=== PATIENT | male | born 2000 | race Caucasian/White ===

== ENCOUNTER 2020-12-01 10:57 | Emergency (ER) | payer MEDICAID ==
[~2020-12-01] VITALS: Ht 165.1 cm; Wt 52.3 kg
[2020-12-01 11:24] VITALS: BP 122/72
[2020-12-01] MEDS ORDERED: AMOX500C2 PO (11:36)
[2020-12-01] MEDS ORDERED: HYDR-3965 PO (11:36)
--- NOTE | 2020-12-01 11:53 | NUR ---
Patient was seen and assessed by provider.
== END 2020-12-01 11:53 | disposition home or self-care (01) ==
LOC: ER 10:57
DX: K02.9 Dental caries, unspecified (principal); K08.89 Other specified disorders of teeth and supporting structures
CPT/HCPCS: 99283

== ENCOUNTER 2020-12-12 15:32 | Emergency (ER) | payer MEDICAID ==
[~2020-12-12] VITALS: Ht 165.1 cm; Wt 54.5 kg
[~2020-12-12 15:32] MED LIST: AMOX500C2 PO; HYDR-3965 PO
[2020-12-12 15:55] VITALS: BP 114/56
[2020-12-12] MEDS ORDERED: ondansetron 4mg rapidly disintigrating tab PO ONE (17:55)
[2020-12-12] MEDS ORDERED: ketorolac tromethamine 15mg/ml inj. IM ONE (17:55)
[2020-12-12] MEDS ORDERED: HYDROcodone/acetaminophen 5mg/325mg tablet PO ONE (17:55)
== END 2020-12-12 18:16 | disposition home or self-care (01) ==
LOC: ER 15:32
DX: K04.7 Periapical abscess without sinus (principal); Z79.899 Other long term (current) drug therapy
CPT/HCPCS: 96372; 99283

== ENCOUNTER 2021-05-11 23:15 | Emergency (ER) | payer MEDICAID ==
[~2021-05-11] VITALS: Ht 165.1 cm; Wt 58.2 kg
[2021-05-11 23:21] VITALS: BP 124/88
[2021-05-12] MEDS ORDERED: AMOX-422 PO (00:30)
[2021-05-12] MEDS ORDERED: HYDR-3965 PO (00:31)
== END 2021-05-12 01:23 | disposition home or self-care (01) ==
LOC: ER 23:15
DX: K08.89 Other specified disorders of teeth and supporting structures (principal)
CPT/HCPCS: 99283

== ENCOUNTER 2021-05-29 19:04 | Emergency (ER) | payer MEDICAID ==
[~2021-05-29] VITALS: Ht 165.1 cm; Wt 59.0 kg
[~2021-05-29 19:04] MED LIST changes: -AMOX500C2 PO
[2021-05-29 19:11] VITALS: BP 130/81
[2021-05-29] MEDS ORDERED: ONDA4TAB6 PO (23:39)
[2021-05-29] MEDS ORDERED: HYDR-3965 PO (23:39)
[2021-05-29] MEDS ORDERED: CLIN150C2 PO (23:39)
[2021-05-29] MEDS ORDERED: METH4TAB81 PO (23:39)
== END 2021-05-30 01:05 | disposition home or self-care (01) ==
LOC: ER 19:04
DX: K08.89 Other specified disorders of teeth and supporting structures (principal); K02.9 Dental caries, unspecified; Z79.2 Long term (current) use of antibiotics; Z79.899 Other long term (current) drug therapy
CPT/HCPCS: 99283

== ENCOUNTER 2021-06-16 19:32 | Emergency (ER) | payer MEDICAID ==
[~2021-06-16] VITALS: Ht 165.1 cm; Wt 58.9 kg
[~2021-06-16 19:32] MED LIST changes: +CLIN150C2 PO; +METH4TAB81 PO; +ONDA4TAB6 PO
[2021-06-16 19:46] VITALS: BP 117/60
== END 2021-06-16 22:43 | disposition left against medical advice (07) ==
LOC: ER 19:33
DX: M54.40 Lumbago with sciatica, unspecified side (principal); Z53.21 Procedure and treatment not carried out due to patient leaving prior to being seen by health care provider

== ENCOUNTER 2021-06-26 07:01 | Emergency (ER) | payer MEDICAID ==
[~2021-06-26] VITALS: Ht 165.1 cm; Wt 51.6 kg
[2021-06-26 07:06] VITALS: BP 123/70
[2021-06-26] MEDS ORDERED: HYDR-3965 PO (08:32)
[2021-06-26] MEDS ORDERED: CYCL-1 PO (08:32)
[2021-06-26] MEDS ORDERED: PENI250T2 PO (08:32)
== END 2021-06-26 08:52 | disposition home or self-care (01) ==
LOC: ER 07:02
DX: K08.89 Other specified disorders of teeth and supporting structures (principal); M62.830 Muscle spasm of back; Z79.2 Long term (current) use of antibiotics; Z79.899 Other long term (current) drug therapy
CPT/HCPCS: 99283

== ENCOUNTER 2021-07-25 06:53 | Emergency (ER) | payer MEDICAID ==
[~2021-07-25] VITALS: Ht 165.1 cm; Wt 58.6 kg
[~2021-07-25 06:53] MED LIST changes: -CLIN150C2 PO; +CYCL-1 PO
[2021-07-25 07:05] VITALS: BP 126/84
--- NOTE | 2021-07-25 07:19 | NUR ---
FIRST CONTACT WITH PT. 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 PAIN TO LOWER LEFT JAW WHERE 'ABSCESS FORMS EVERY DAY AND DRAINS' PT GARGLES SALT WATER. HAS APPT TO HAVE ALL TEETH REMOVED IN SEPTEMBER, BUT PAIN IS UNBEARABLE AT THIS POINT.
[2021-07-25] MEDS ORDERED: HYDROcodone/acetaminophen 10/325mg tab PO ONE (07:25)
[2021-07-25] MEDS ORDERED: ondansetron 4mg rapidly disintigrating tab PO ONE (07:25)
[2021-07-25] MEDS ORDERED: CLIN150C2 PO (07:26)
[2021-07-25] MEDS ORDERED: METH4TAB81 PO (07:26)
[2021-07-25] MEDS ORDERED: METR-159 PO (07:26)
[2021-07-25] MEDS ORDERED: HYDR-3965 PO (07:26)
[2021-07-25] MEDS ORDERED: ONDA4TAB6 PO (07:26)
--- NOTE | 2021-07-25 07:30 | NUR ---
AT BEDSIDE FOR D/C
== END 2021-07-25 07:46 | disposition home or self-care (01) ==
LOC: ER 06:53
DX: K02.9 Dental caries, unspecified (principal); K04.7 Periapical abscess without sinus; K08.89 Other specified disorders of teeth and supporting structures; K00.7 Teething syndrome; Z79.2 Long term (current) use of antibiotics; Z79.899 Other long term (current) drug therapy
CPT/HCPCS: 99283

== ENCOUNTER 2021-08-10 07:14 | Emergency (ER) | payer MEDICAID ==
[~2021-08-10] VITALS: Ht 165.1 cm; Wt 56.8 kg
[2021-08-10 07:14] VITALS: BP 127/70
[~2021-08-10 07:14] MED LIST changes: +CLIN150C2 PO
[2021-08-10] MEDS ORDERED: PENI500T2 PO (10:11)
[2021-08-10] MEDS ORDERED: HYDR-3965 PO (10:51)
== END 2021-08-10 10:20 | disposition home or self-care (01) ==
LOC: ER 07:14
DX: K02.9 Dental caries, unspecified (principal); Z79.2 Long term (current) use of antibiotics; Z79.899 Other long term (current) drug therapy
CPT/HCPCS: 99283

== ENCOUNTER 2021-08-26 07:46 | Emergency (ER) | payer MEDICAID ==
[~2021-08-26] VITALS: Ht 165.1 cm; Wt 56.8 kg
[~2021-08-26 07:46] MED LIST changes: -CLIN150C2 PO; +PENI500T2 PO
[2021-08-26 07:47] VITALS: BP 114/62
== END 2021-08-26 08:51 | disposition home or self-care (01) ==
LOC: ER 07:46
DX: K02.9 Dental caries, unspecified (principal); K08.89 Other specified disorders of teeth and supporting structures; Z79.2 Long term (current) use of antibiotics; Z79.899 Other long term (current) drug therapy
CPT/HCPCS: 99282

== ENCOUNTER 2022-02-23 11:23 | Emergency (ER) | payer MEDICAID ==
[~2022-02-23] VITALS: Ht 165.1 cm; Wt 59.1 kg
[~2022-02-23 11:23] MED LIST changes: -HYDR-3965 PO; -PENI500T2 PO
[2022-02-23 11:30] VITALS: BP 122/68
[2022-02-23] MEDS ORDERED: ibuprofen tablet 400 MG TABLET PO ONE (13:10)
[2022-02-23] MEDS ORDERED: amoxicillin 250mg capsule PO ONE (13:10)
[2022-02-23] MEDS ORDERED: AMOX-100 PO (13:14)
[2022-02-23] MEDS ORDERED: IBUP-1985 PO (13:14)
== END 2022-02-23 13:21 | disposition home or self-care (01) ==
LOC: ER 11:25
DX: K08.89 Other specified disorders of teeth and supporting structures (principal)
CPT/HCPCS: 99283

== ENCOUNTER 2022-02-25 01:21 | Emergency (ER) | payer MEDICAID ==
[~2022-02-25 01:21] MED LIST changes: +AMOX-100 PO; +IBUP-1985 PO
== END 2022-02-25 02:23 | disposition left against medical advice (07) ==
LOC: ER 01:22
DX: K08.89 Other specified disorders of teeth and supporting structures (principal); Z53.21 Procedure and treatment not carried out due to patient leaving prior to being seen by health care provider

== ENCOUNTER 2024-05-23 02:21 | Emergency (ER) | payer MEDICAID ==
[~2024-05-23] VITALS: Ht 167.6 cm; Wt 57.3 kg
[~2024-05-23 02:21] MED LIST changes: -AMOX-100 PO
[2024-05-23 02:23] VITALS: BP 143/88; PULSE 67; RESP 17; TEMP 97.9; O2SAT 100
[2024-05-23] MEDS ORDERED: AMOX-101 PO (02:34)
[2024-05-23] MEDS: amoxicillin 250mg capsule PO ONE (02:38)
== END 2024-05-23 02:41 | disposition home or self-care (01) ==
LOC: ER 02:22
DX: J02.9 Acute pharyngitis, unspecified (principal); Z79.899 Other long term (current) drug therapy; Z79.1 Long term (current) use of non-steroidal anti-inflammatories (NSAID); Z79.52 Long term (current) use of systemic steroids
CPT/HCPCS: 99283